=== PATIENT | male | born 1985 | race Caucasian/White ===

== ENCOUNTER 2017-06-25 18:24 | Inpatient (IN) | payer OTHER ==
[~2017-06-25] VITALS: Ht 170.2 cm; Wt 73.2 kg
[2017-06-25 18:34] VITALS: Ht 170.2 cm; Wt 73.2 kg
[2017-06-25 19:56] LABS: BASOPHIL % 0.3 % (0-2); PLATELET COUNT 204 x10^3mcL (130-400); RED CELL DISTRIBUTION WIDTH 12.4 % (11.5-14.5)
[2017-06-25 20:02] LABS: CALCIUM 8.6 mg/dL (8.5-10.1); CARBON DIOXIDE 24.3 mmol/L (21-32); CHLORIDE SERUM 101 mmol/L (98-107); CREATININE SERUM 0.9 mg/dL (0.7-1.3); GFR1 > 60 mL/min; GLUCOSE SERUM 110 mg/dL (74-106); POTASSIUM SERUM 3.8 mmol/L (3.5-5.1); SODIUM SERUM 138 mmol/L (136-145)
[2017-06-25 20:08] LABS: ALBUMIN 4.3 g/dL (3.4-5.0); ALKALINE PHOSPHATASE 71 U/L (46-116); ALT/SGPT 24 U/L (16-63); AST/SGOT 21 U/L (15-37); BILIRUBIN TOTAL 1.4 mg/dL (0.20-1.00); TOTAL PROTEIN, SERUM 7.4 g/dL (6.4-8.2)
[2017-06-25 20:12] LABS: CHOLESTEROL/HDL RATIO 1.5; MAGNESIUM 1.9 mg/dL (1.8-2.4); PHOSPHOROUS 2.9 mg/dL (2.5-4.9)
[2017-06-25 20:20] LABS: FREE T4 1.18 ng/dL (0.76-1.46); T3 TOTAL 1.3 ng/mL
[2017-06-25 20:37] VITALS: BP 123/72
[2017-06-26 06:06] LABS: BASOPHIL % 0.4 % (0-2); PLATELET COUNT 182 x10^3mcL (130-400); RED CELL DISTRIBUTION WIDTH 12.8 % (11.5-14.5)
[2017-06-26 06:26] LABS: CALCIUM 8.3 mg/dL (8.5-10.1); CHLORIDE SERUM 104 mmol/L (98-107); CREATININE SERUM 0.9 mg/dL (0.7-1.3); GFR1 > 60 mL/min; GLUCOSE SERUM 90 mg/dL (74-106); POTASSIUM SERUM 3.6 mmol/L (3.5-5.1); SODIUM SERUM 140 mmol/L (136-145)
[2017-06-26 06:27] VITALS: BP 104/69
[2017-06-26 07:03] LABS: PHOSPHOROUS 3.2 mg/dL (2.5-4.9)
[2017-06-26 10:32] VITALS: BP 124/68
[2017-06-26 13:12] VITALS: BP 102/62
[2017-06-26] MEDS ORDERED: APAP/HYDROCODON1 T13 PO (13:30)
[2017-06-26] MEDS ORDERED: KEFLEX500 M1 PO (14:58)
== END 2017-06-26 15:10 | disposition home or self-care (01) | DRG 909 ==
LOC: ED 18:24 → MU 18:47 → DU 18:47 → MU 06-26 13:10
PROVIDERS: Emergency Medicine; Family Medicine; Neuromusculoskeletal Medicine, Sports Medicine
PROC: 0LC Tendons, Extirpation (ICD-10-PCS; principal; 2017-06-26 07:30)
DX: S91.2 Open wound of toe with damage to nail (principal); X58.XXXA Exposure to other specified factors, initial encounter; Y93.89 Activity, other specified; Y92.89 Other specified places as the place of occurrence of the external cause; Y99.8 Other external cause status; Z72.89 Other problems related to lifestyle
CPT/HCPCS: 83880; 84439; 97110-GP; J0690; J2175; J2250; J2270; J2405; J2704; J3010; J3490; J7030; J7120; Q0092